=== PATIENT | female | born 1985 | race Caucasian/White ===

== ENCOUNTER 2023-04-25 11:06 | Outpatient (CLI) | payer BC, SELFPAY ==
--- NOTE | 2023-04-25 11:15 | CRLHL7_ITS ---
For Patients: As a result of the 21st Century Cures Act, medical imaging exams and procedure reports are released immediately into your electronic medical record. You may view this report before your referring provider. If you have questions, please contact your health care provider. ULTRASOUND-GUIDED BREAST BIOPSY AND CLIP PLACEMENT CLINICAL HISTORY: LEFT breast cancer 2019 with LEFT mastectomy. New hypoechoic nodule LEFT chest wall soft tissues. COMPARISON STUDIES: 11/23/2018. TECHNIQUE: Real-time ultrasound with image documentation was used for targeting the breast lesion. Core biopsy specimens were obtained using an automated gun with a 18-gauge biopsy needle. CONSENT and TIME OUT: The procedure, risks, and alternatives were explained to the patient and a consent was signed. [place] Protocol was followed including pre-procedure verification that relevant information/documentation was available, reviewed and properly matched to the patient; consent accurate and complete; and equipment and supplies available. Time Out was conducted just prior to starting procedure to verify the four required elements: patient identity, correct side/site marked (if applicable), procedure, relevant images/results properly labeled and displayed (if applicable). PROCEDURE: The patient was positioned supine on the ultrasound table. The breast was prepped with ChloraPrep. 6 cc of 1 percent lidocaine used for local anesthesia. A sterile metal biopsy clip was placed percutaneously to mona the lesion position within the breast. The specimens were placed in 10% formalin and sent to the pathology department. Pressure was held on the biopsy site until all bleeding subsided. The skin incision was closed with Steri-Strips. An ice pack was positioned over the biopsy site. Post-biopsy instructions were reviewed with the patient, and a written copy was given to her. LATERALITY: LEFT breast/chest wall. LESION: Circumscribed hypoechoic nodule measuring 3 x 3 x 4 millimeters at 2 o`clock 6 cm from the nipple. SUSPICION FOR MALIGNANCY: Intermediate. NUMBER OF SAMPLES: 6. BIOPSY CLIP SHAPE: Oval. PROXIMITY OF CLIP TO TARGET: Within the lesion. IMPRESSION: Ultrasound-guided breast biopsy. When the pathology report is available, an addendum to this report will be made. ACR not applicable Dictated by Walker Garcia MD @ 04/25/2023 12:16:06 PM marjan/Dictated by: Walker Garcia MD @ 04/25/2023 12:16:00 PM ADDENDUM: Pathology consistent with benign lymph node. No evidence of metastatic disease. This is concordant. Routine clinical follow-up recommended. Dictated by: Walker Garcia MD @04/27/2023 11:57:33 AM / CRL:marjan (Electronically Signed)
== END 2023-04-25 11:07 | disposition home or self-care (01) ==
LOC: US 11:09
PROVIDERS: PCP Family Medicine; Visit Provider Family Medicine
DX: R22.2 Localized swelling, mass and lump, trunk (principal); Z85.3 Personal history of malignant neoplasm of breast
CPT/HCPCS: 19083; 88305; A4648; A4649

== ENCOUNTER 2024-12-26 05:56 | Day surgery (SDC) | payer BC, SELFPAY ==
[2024-12-26] VITALS (14 sets, daily range): BP systolic 120–148; BP diastolic 72–94; PULSE 82–110; RESP 12–16; TEMP 36.2–36.7; O2SAT 93–98; BMI 36.6; BMI 30.7
--- OUTSIDE RECORDS SUMMARY | 2024-12-26 05:59 | XMS_ITS ---
Author Organization [facility] Address [address] [place] [address] Care Team Providers Care Fruit Worker Name Role Phone None Reported, Pcp Primary Care Provider Unavail able Active Problems * This document contains information received from the source organization and may not represent a complete record from that organization. Problem Noted Date Diagnosed Date Panic Disorder Episodic Paroxysmal Anxiety 11/16 BRCA1 Gene Mutation Positive 11/14/2023 Absence Of Breast Acquired Bilateral 05/31/2019 Menopause Surgical 05/31/2019 Osteopenia 05/31/2019 Genetic Susceptibility To Malignant Neoplasm Ova ry 01/07/2019 Malignant Neoplasm Of Overla pping Sites Of Left Female Breast 09/14/2018 Cancer Staging:Clinical stage from 08/02/2018:Stage IIB(cT2, cN0, cM0, G3, ER-, WV-, HER2-) - Signed by Vick Rose M.D. on 12/10/2021 Pathologic stage from 02/20/2019:No Stage Recommended(ypT0, pN0(sn), cM0) - Signed by Vick Rose M.D. on 12/10/2021 Genetic Susceptibility To Breast Malignant Neopl asm 09/12/2018 Overview (05/31/2019): BRCA1 gene mutation Obesity Body Mass Index 30-39.9 Adult Overview (05/31/2019): 05/31/19 BMI 31.6 Current Treatment and Therapy Plans No current plan information found. Past Treatment and Therapy Plans Hematology / Oncology Treatment 1 Plan Name Start Date Discontinue Date Treatment Medications Discontinue Reason Plan Provider Cycles [facility] [id number] ( Cyclophosphamide / Sargramostim / Folate Receptor Alpha Peptide or Placebo ) 201808/14/2024 [facility] IRB [id number] cycloPHOSphamideResear IRB [id number] FR-alpha peptide 2.5 mg/sargramostim or placebo/sargramostim Therapy Complete Vick Rose M.D. 14 of 14 cycles started Treatment Summaries Malignant Neoplasm Of Overlapping Sites Of Left Female Breast (HCC)* Images from the original note were not included. Your Survivorship Care Plan Provided on 05/31/2019 General Information Patient name Ariana Trotter (home) [phone] (work) Date of 1985 Introduction This is your personal survivorship care plan. It is both a summary of your treatment history as well as a follow-up plan to guide you through the management of your continued medical care. The plan was developed by a multidisciplinary team of [place] cancer providers to help you understand, discuss, and plan post-treatment needs with your healthcare providers, including your primary care team. It includes detailed medical information regarding your treatment as well as information relating to potential shorter and long-term side-effects post-treatment. What is Survivorship? The most widely used definition of survivorship care involves the following elements: 1. Prevention of recurrent and new cancers, and of other late effects; 2. Surveillance for cancer spread, recurrence, or second cancers; assessment of medical and psychosocial late effects; 3. Intervention for consequences of cancer and its treatment, for example: medical problems such aslymphedema and sexual dysfunction; symptoms, including pain and fatigue; psychological distress experienced by cancer survivors and their caregivers; and concerns related to employment, insurance, and disability; and 4. Coordination between specialists and primary care providers to ensure that all of the survivors health needs are met. Care Team Patient Care Team: Vick Rose M.D. as Oncologist Breast (Medical Oncology) Josette Robertson M.D. as External Oncologist (Medical Oncology) Catherine Villanueva M.D. as Breast Surgeon Scarlett Freedman M.D. as Plastic Surgeon Cancer Diagnosis and Staging Information Diagnosis Malignant Neoplasm Of Overlapping Sites Of Left Female Breast (HCC) Invasive ductal carcinoma Diagnosis date 09/14/2018 Staging information Cancer StagingPathologic Staging (AJCC, 8th edition) TNM Descriptors: y Primary Tumor: pT0 Modifier: (sn) Category: pN0 Distant Metastasis: Not applicable. Genetic Testing Performed Genetic Consultation to be performed 06/21/2019. Genetic Test Results: POSITIVE. BRCA1 pathogenic variant identified. BRCA1 c.1687C>T. NF1 variant of uncertain significance. NF1 c.6943G>A. Background Information Family history Cancer-related family history includes Testicular cancer (age of onset: 25) in her brother. Social History Alcohol use reports current alcohol use of about 1.0 standard drinks of alcohol per week. Tobacco use reports that she has never smoked. She has never used smokeless tobacco. Treatment Summary Breast Cancer Oncology History Malignant Neoplasm Of Overlapping Sites Of Left Female Breast (HCC) 07/24/2018 Initial Diagnosis Malignant Neoplasm Of Left Female Breast In June 2018 patient noticed lump in left breast while her infant. It was observedfor 1 month, but then ultrasound pursued. 2.2x1.5x1.8 cm mass on ultrasound. MRI breast showed 2.8x1.9x2.2 cm mass. No contralateral findings. 07/24/2018 Biopsy/Pathology Core needle biopsy: Left breast invasive ductal carcinoma, Grade III, ER/WV <1%, HER2 negative (IHC 1+). 07/27/2018 - 11/26/2018 Chemotherapy Weekly paclitaxel initiated. Carboplatin added on 09/11/18 when mass showed no change and BRCA1 foundto be positive. 09/12/2018 Genetic Testing and Tumor Genotyping Genetic Testing Performed: 23-gene Breast/Ball Warper Tender Cancer Panel ([employer]). Genetic Test Results: POSITIVE. BRCA1 pathogenic variant identified. BRCA1 c.1687C>T. NF1 variant of uncertain significance. NF1 c.6943G>A. 11/26/2018 - 01/10/2019 Chemotherapy Doxorubicin and cyclophosphamide x 4 cycles. 01/16/[address] performed due to patient having low back pain. No evidence of malignancy. 02/20/2019 Surgery and Procedures Procedure(s) with Dr. Davis: MASTECTOMY, SKIN-SPARING. (Bilateral) BIOPSY SENTINEL LYMPH NODE AXILLARY (Left) REMOVAL CENTRAL VENOUS CATHETER, PORT. (Right) RECONSTRUCTION BREAST WITH TISSUE MICROWAVE RADIO TECHNICIAN (Bilateral) LAPAROSCOPIC SALPINGO-OOPHORECTOMY (Bilateral) 02/20/2019 Biopsy/Pathology Breast, left, skin-sparing mastectomy: No residual invasive or in situ carcinoma. [place] lymph nodes negative. 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 We shared the data from Tang et al in 2017 noting excellent roasterman outcomes. Our standard of care we discussed is to proceed to observation with clinic visits every 3-4 months initially, and then spacing out further. She has no need for radiation. She is uncertain about her reconstruction plan for this time. We discussed our anti-folate receptor vaccine study designed specifically in triple negative breastcancer that will target folate receptor alpha (Fr?). We shared the details of this study and she isquite interested in participating. We contacted our document control coordinator, Ángel Nicholson, and provided a blank consent form. We will see her back in 3 months time with anticipation of consent the study. She will be followed by both Dr. Acuna and myself. [id number] - Double Blind, Parallel Groups, Controlled, Randomized Phase II Trial to Evaluate Vaccination with Folate Receptor Alpha Peptide Vaccine with GM-CSF as Vaccine Adjuvant Following Oral Cyclophosphamide Versus GM-CSF/Placebo to Prevent Recurrence in Patients with Triple Negative Breast Cancer 05/31/2019 Survivorship Clinic Consultation with Daniella Sparks APRN, C.N.P., D.N.P. Lifetime Cumulative Dose Lifetime Dose Tracking No doses have been documented on this patient for the following tracked chemicals: doxorubicin, epirubicin, idarubicin, daunorubicin, mitoxantrone, bleomycin, doxorubicin HCl pegylated liposomal, daunorubicin citrate liposomal, Pediatric total anthracycline, Adult total anthracycline Schedule of Surveillance Testing and Visits The basis for the surveillance testing schedule and test recommendations in this section are largely based on guidelines from the [place] [employer] (ASCO), the biggest cancer society regarding clinical practice. -Physical examinations should be performed every 3 to 6 months for the first 3 years, every 6 to 12months for years 4 and 5, and annually thereafter. -Monthly breast and/or chest wall self examinations. -Women who had bilateral (both sides) mastectomy with or without reconstruction do not need furtherbreast imaging studies for screening or surveillance. Surveillance visits How often: As directed by oncology With Who: Medical Oncology Additional information: Imaging (mammograms) How often: No longer needed Where: Additional information: Follow-up care with your Primary Care Physician (PCP) Follow-up care with your primary care physician is recommended for age- appropriate cancer screenings, for monitoring blood pressure, cholesterol, blood sugar, weight, and for other medical conditions. Symptoms of Recurrence In addition, please contact your healthcare provider with any new symptoms that may signify a breast cancer recurrence including lumps or skin changes on your breast or chest wall, pain that lasts more than a few weeks, difficulty breathing, or unintentional weight loss. Long- term Side effects Possible late and long-term effects of cancer treatment can include bone thinning, menopausal symptoms, and nerve damage. Please talk to your care team about ways to manage these side effects. Menopause Symptoms After chemotherapy, some women stop getting their periods every month-- or stop getting them altogether. Some cancer treatments (and the medicines tamoxifen and raloxifene) can cause changes in women???s bodies and reduce the amount of hormones they make. These changes can cause your periods to stop, as well as cause other symptoms of menopause (also called ???the change?? or ???change of life?? ). Over time, some women will start getting their periods again (this is more likely foryounger women), but others will not. Even though your doctor may have discussed early menopause with you, give yourself permission to mourn the loss of your fertility. Some common signs of menopause are: Irregular periods. One of the first signs is a change in your periods. They may become less regular. They could be multiple wire sawyer. Some women have short times of heavy bleeding. Sometimes, they stop all of a sudden. Hot flashes. Hot flashes are often worse at night and can affect sleep or cause mood changes. Problems with your vagina or bladder. Tissues in these areas become soap drier operator and thinner. You may be more likely to get vaginal infections. As you get older, you may also have problems holding your urine or urinary tract problems. Lack of interest in having sex. These changes may make it hard for you to become sexually aroused. Fatigue and sleep problems. You may feel tired or have trouble getting to sleep, getting up early, or getting back to sleep after waking up in the middle of the night. Memory and other problems, such as depression, mood swings, and irritability. Some of these, especially memory problems, may be related to growing older. There may be a connection between changes in your hormone levels and your emotions. Other changes in your body. You may notice your waist getting bigger, less muscle and more fat around your body, or thinning and loss of elasticity of your skin. Ask your doctor if you still need to use control, even if you are not getting your period. Wellness Recommendations: Healthy food choices include a wide variety of fruits, vegetables, whole grains, poultry, and fish while minimizing refined grains, processed and red meats, desserts, and high?fat dairy products. Exercise after cancer treatment improves quality of life, fatigue, mood, muscle strength, and physical functioning. It also decreases the risk of cancer recurrence and the risk of cardiovascular disease. Work up to exercising 30 minutes/day at least 5 days/week, and strive to achieve a healthy weight (BMI 18.5?25). Alcohol use is linked to the risk of breast cancer recurrence. If you choose to drink alcohol, do so in moderation (no more than 7 drinks/week on average). Tobacco use may also increase risk of breast cancer recurrence. If you smoke, talk to your doctor to help you quit. [facility] can help. Stress management tools such as meditation, prayer, and breathing exercises may be helpful. If you develop feelings of worry, anxiety, sadness, or hopelessness that persist for > 2 weeks, talk to a health care provider. Sleep is important for healing and well-being. Most adults require 7?9 hours of sleep/night. If youare having difficulty sleeping, talk to your provider.
--- OUTSIDE RECORDS SUMMARY | 2024-12-26 05:59 | XMS_ITS | Clinical Summary ---
Author Organization [facility] Address [address] [place] [address] Care Team Providers Care Subscription Crew Leader Name Role Phone None Reported, Pcp Primary Care Provider Unavail able Source Comments Patient records contain information from all sites at [facility]. For routine questions regarding patient records, call [phone] during business hours, M-F 8:00 AM - 5:00 PM Central Time. Record requests for emergency care only can be directed to [phone] at any time.[facility] Allergies Active Allergy Reactions Criticality Noted Date Comments Adhesive Tape-Silicones Rash 06/28/2019 Rash from Tegaderm Medications * This document contains information received from the source organization and may not represent a complete record from that organization. multivitamin tablet Take 1 tablet by mouth daily. 5 Active ascorbic acid, vitamin C, (VITAMIN C) 1,000 mg tablet Take 1,000 mg by mouth daily. Active calcium carb/magnesium oxid/D3 (CALCIUM MAGNESIUM + D ORAL) Take 1 tablet by mouth daily. Active cholecalciferol (VITAMIN D3) 125 mcg (5,000 Unit) capsule Take 125 mcg by mouth once a week. Active gabapentin (NEURONTIN) 300 mg capsule Take 300 mg by mouth at bedtime. 3 Active FLUoxetine (PROzac) 20 mg capsule Take 20 mg by mouth daily. To be taken with 40 mg capsule to total 60 mg 4 Active FLUoxetine (PROzac) 40 mg capsule Take 1 capsule by mouth every morning. 4 Active levonorgestreL (Mirena) 21 mcg/24 hr (8 yrs) 52 mg IUD 1 each by intrauterine route continuously. To be removed 12/25/2031 Active LORazepam (Ativan) 0.5 mg tablet Take 0.5 mg by mouth every 6 (six) hours as needed. 4 Active amoxicillin (AmoxiL) 500 mg tabletIndicatio ns:Malignant Neoplasm Of Overlapping Sites Of Left Female Breast (HCC) Take four tablets, by mouth, 1 hour before the procedure 8 tablet 1 5 Active ibuprofen 200 mg tablet Take 3 tablets (600 mg total) by mouth every 8 (eight) hours as needed for pain. HOLD for 48 hours after surgery. May resume taking on 07/28/24 5 Active acetaminophen (TylenoL) 500 mg tablet Take 2 tablets (1,000 mg total) by mouth every 6 (six) hours as needed for pain (pain) for up to 14 days. Take 2 tablets up to four times daily for pain 5 Active ondansetron (Zofran) 4 mg tablet Take 1 tablet (4 mg total) by mouth every 8 (eight) hours as needed for nausea or vomiting. 20 tablet 09/26/2024 3:50 PM CDT 5 Active traMADoL (Ultram) 50 mg tabletIndicatio ns:Acute Pain Take 1 tablet (50 mg total) by mouth every 6 (six) hours as needed for pain 8 tablet 07/25/2024 2:36 PM QUALITATIVE EXECUTIVE RESEARCHER 5 Active norethindrone (Aygestin) 5 mg tablet Take 0.5 tablets (2.5 mg total) by mouth daily. 45 tablet 3 10/04/2024 11:46 AM CDT 5 09/07/19 26 Active estradioL (Vivelle-Dot) 0.1 mg/24 hr patchIndication s:Menopause Surgical Place 1 patch on the skin every 3 (three) days. 24 patch 1 12/02/2024 3:55 PM CDT 5 Active estradioL (Vivelle-Dot) 0.05 mg/24 hr patchIndication s:Menopause Surgical Place 1 patch on the skin every 3 (three) days. 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 on 12/10/2021 Pathologic stage from 02/20/2019:No Stage Recommended(ypT0, pN0(sn), cM0) - Signed by Vick Rose M.D. on 12/10/2021 Genetic Susceptibility To Breast Malignant Neopl asm 09/12/2018 Overview (05/31/2019): BRCA1 gene mutation Obesity Body Mass Index 30-39.9 Adult Overview (05/31/2019): 05/31/19 BMI 31.6 Encounters Date Type Department Care Team Description 11/29/2024 Refill Department of Orthopedic Surgery in [place], [place] [address] [place] [phone] Noah Olivas M.D. Med Refill 10/25/2024 Clinical Communication Division of Plastic Surgery in [place], [place] [address] [place] [phone] Nancy Sexton M.D. Surgical Listing 10/01/2024 2:00 PM CDT Office Visit Division of Plastic Surgery in [place], [place] [address] [place] [phone] Emelina Sampson APRN, C.N.P., D.N.P. Aftercare Plastic Surgery (Primary Dx) 10/01/2024 Ancillary Procedure Department of Plastic and Reconstructive Surgery from Last 3 Months Immunizations Immunization Administration Dates Next Due 4vHPV (discontinued) 09/28/2006,05/29/2006,03/30 H1N1 All Forms 04/17/2009 HepA / HepB 05/11/2023(Deferred: Other) Influenza TIV (IM) 03/13/2013,03/15/2012, 009 Influenza, Seasonal, Injectable 03/13/2013,03/15 Influenza, Unspecified 05/11/2023(Deferr ed: Patient Refused),03/13/2019 MMR 10/01/1996 PCV20 11/17/2023 Rabies (Rabavert) 03/03/2018,02/28/2018 Rabies, intramuscular, historical 04/10/2015,02/2015,03/13/2015 SARS-COV-2 (COVID-19) - PFIZ ER TS(Discontinued)(12 years or older) 05/11/2023(Deferred: Other - up to date) Td (Adult), adsorbed 10/01/1996 Tdap 03/09/2017,09/28/2006 influenza trivalent vaccine (6 months and older)(PF) 03/13/2009 influenza vaccine quad (FLUZONE/FLUARIX) (6 months and older)(PF) 06/17/2021,02/26/2020,03/13/2019,2017,02/23/2017,04/05/2016,03/05/2015,0 07/03/2014 Family History Medical History Relation Name Comments Testicular cancer Brother 1 No Known Problems Brother 2 Other cancer Brother 3 Luke Schwalbe Testicular Other cancer Brother 4 Luke Schwalbe Testicular No Known Problems Daughter 1 No Known Problems Daughter 2 No Known Problems Father Parkinsonism Maternal Grandfather 1 Jesús Horoshak Parkinsonism Maternal Grandfather 2 Jesús Horoshak Thyroid disease Maternal Grandmother 1 Nicole Horoshak hypo Thyroid disease Maternal Grandmother 2 Nicole Horoshak hypo BRCA1 Negative Mother Cathi Horoshak Breast cancer Mother Cathi Horoshak 2021 Hyperthyroidism Mother Cathi Horoshak Thyroid disease Mother Cathi Horoshak Graves Colon cancer Paternal Grandfather Ilir Schwalbe Coronary artery disease Paternal Grandfather Ilir Schw albe Eye cancer Paternal Grandfather Ilir Schwalbe Other cancer Paternal Grandfather Ilir Joya Eye ca ncer Skin cancer Paternal Grandfather Ilir Ashfordalmaryjo BRCA1 Positive Sister Thyroid cancer Sister No Known Problems Son Relation Name Status Comments Brother 1 Brother 2 Brother 3 Bj Joya Brother 4 Bj Joya Alive Daughter 1 Daughter 2 Father Maternal Grandfather 1 Jesús Horoshak Maternal Grandfather 2 Jesús Horoshak Alive Maternal Grandmother 1 Nicole Horoshak Maternal Grandmother 2 Nicole Horoshak Alive Mother Cathi Randleak Paternal Grandfather Ilir Ashfordalmaryjo Sister Son Social History Tobacco Use Types Packs/Day Years Used Date Smoking Tobacco: Never Passive Smoke Exposure: Past Smokeless Tobacco: Never Tobacco Cessation:Counseling Given: Not Answered Alcohol Use Standard Drinks/Week Comments Yes 2 (1 standard drink = 0.6 oz pur e alcohol) 1 or less weekly [facility] Utilities Answer Date Recorded In the past 12 months has e [employer], gas, oil, or water [employer] threatened to shut off services in your home? No 07/16/2024 Humiliation, Afraid, Rape, and Kick questionnair e Answer Date Recorded Within the last year, have y ou been afraid of your partner or ex-partner? No 04/08/2022 Within the last year, have y ou been humiliated or emotionally abused in other ways by your partner or ex-partner? No Within the last year, have y ou been kicked, hit, slapped, or otherwise physically hurt by your partner or ex-partner? No 04/08/2022 Within the last year, have y ou been raped or forced to have any kind of sexual activity by your partner or ex-partner? No 04/08/2022 Hunger Vital Sign Answer Date Recorded Within the past 12 months, y ou worried that your food would run out before you got the money to buy more. Never true 07/16/19 25 Within the past 12 months, t he food you bought just didn't last and you didn't have money to get more. Never true 07/16/2024 PRAPARE - Transportation Answer Date Re corded In the past 12 months, has l ack of transportation kept you from medical appointments or from getting medications? No 09/2024 In the past 12 months, has l ack of transportation kept you from meetings, work, or from getting things needed for daily living? No 07/16/2024 Depression Answer Date Recor ded PHQ-9 Total Score (max 27) 10 11/16 Housing Stability Answer Date Recorded What is your living situation today? I have a [facility] place to live 07/16/2024 Education Answer Date Recorded What is the highest level of school you have completed or the highest degree you have received? 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 Not on file Not on file Not on file Last Filed Vital Signs Vital Sign Reading Time Taken Comments Blood Pressure 153/95 07/25/2024 2:15 PM QUALITATIVE EXECUTIVE RESEARCHER Pulse 107 07/25/2024 2:15 PM QUALITATIVE EXECUTIVE RESEARCHER Temperature 37.1 C (98.8 F) 07/25/2024 1:15 PM QUALITATIVE EXECUTIVE RESEARCHER Respiratory Rate 21 07/25/2024 1:30 PM QUALITATIVE EXECUTIVE RESEARCHER Oxygen Saturation 94% 07/25/2024 2:15 PM QUALITATIVE EXECUTIVE RESEARCHER Inhaled Oxygen Concentration - - Weight 88.9 kg (195 lb 15.8 oz) 07/25/2024 9:50 AM QUALITATIVE EXECUTIVE RESEARCHER Height 157 cm (5' 1.81) 07/25/2024 9:50 AM QUALITATIVE EXECUTIVE RESEARCHER Body Mass Index 36.07 07/25/2024 9:50 AM QUALITATIVE EXECUTIVE RESEARCHER Plan of Treatment Upcoming Encounters Date Type Department Care Team (Latest Contact Info) Description 01/16/2025 12:00 PM CDT Appointment Department of Laboratory Medicine and Pathology, [facility], in [place], [place] [address] [place] [phone] Nancy Sexton M.D. [address] [place] [phone] 01/16/2025 12:20 PM CDT Ancillary Procedure Department of Cardiovascular Medicine in [place], [place] [address] [place] [phone] Nancy Sexton M.D. [address] [place] [phone] 01/16/2025 1:00 PM CDT Office Visit Division of Plastic Surgery in [place], [place] [address] [place] [phone] Nancy Sexton M.D. [address] [place] [phone] 01/16/2025 1:45 PM CDT Comprehensive Visit Preoperative Evaluation Center in [place], [place] [address] [place] [phone] Nancy Sexton M.D. [address] [place] [phone] 01/27/2025 8:10 AM CDT Hospital Encounter RST RO 01 4 AM ADMIT [address] [place] [phone] Nancy Sexton M.D. [address] [place] [phone] 01/27/2025 8:10 AM CDT - 01/27/2025 5:14 PM CDT Surgery RST RO MAIN OR [address] [place] [phone] Nancy Sexton M.D. [address] [place] [phone] RECONSTRUCTION BREAST WITH DEEP INFERIOR EPIGASTRIC SENIOR LOGISTICS MANAGER FLAP 02/06/2025 10:45 AM CDT Office Visit Division of Plastic Surgery in [place], [place] [address] [place] [phone] Emelina Sampson, DANIEL, C.N.P., D.N.P. [address] [place] [phone] Scheduled Procedures Name Priority Associated Diagnoses Date/Ti me RECONSTRUCTION BREAST WITH DEEP INFERIOR EPIGASTRIC SENIOR LOGISTICS MANAGER FLAP Absence Of Breast Acquired Bilateral BRCA1 Gene Mutation Positive Genetic Susceptibility To Breast Malignant Neoplasm 01/27/2025 8:10 AM CDT CAPSULOTOMY BREAST Absence Of Breast Acquired Bilateral BRCA1 Gene Mutation Positive Genetic Susceptibility To Breast Malignant Neoplasm 01/27/2025 8:10 AM CDT REMOVAL TISSUE FACSIMILE OPERATOR BREAST Absence Of Breast Acquired Bilateral BRCA1 Gene Mutation Positive Genetic Susceptibility To Breast Malignant Neoplasm 01/27/2025 8:10 AM CDT Health Maintenance Due Date Last Done Comments HIV Screening 1984 Hepatitis C Screening 1984 Hepatitis B Vaccines (1 of 3 - 19+ 3-dose series) 2003 Cervical/Vaginal Cancer Screening 06/12/2022 06/12/2019 (Performed elsewhere) COVID-19 Vaccine ( season) 2024 07/22/2021, 10/01/2020, 09/10/2020 Depression Screening (Annual PHQ-2) 06/12/2024 Lipid (Cholesterol) Screening 02/25/2025 02/26/2020 Influenza Vaccine (#1) 2025 2, 02/26/2020, 03/13/2019, Additional history exists DTaP,Tdap,and Td Vaccines (4 - Td or Tdap) 03/09/2027 03/09/2017, 09/28/2006, 10/01/1996 HPV Vaccines Completed 09/28/2006, 05/12, 03/30/2006 Pneumococcal vaccine (0-49 years) Aged Out 11/17/2023 No longer eligible based on patient's age to complete this topic IPV Vaccines Aged Out No longer eligi ble based on patient's age to complete this topic Goals Goal Patient Goal Type Associated Problems Recent Progress Patient-Stated? Author Autogenera sharad Goal Care Plan Autogenerated Problem No Monique Reece I., R.[employer] Implanted Type Area Cloth Bleaching Range Operator Chief Device Identifier Shelf Expiration Date Model / Serial / Lot Clp Hrzn Ti 6 Angela Campbell Shane - [id number] Implanted:Qty: 1 on 02/20/2019 by Catherine Villanueva M.D. at [facility] Hardware e.g. pins/screws/ro ds [employer] [id number] 09/11/2023 [id number] / / [id number] Mirena 21 Mcg/24 Hours (8 Yrs) 52 Mg Intrauterine Device-12/25/19 Implanted:Qty: 1 on 12/25/2023 by Noah David M.D. Intrauterine Device Uterus Lexie [id number] Description:To be removed Misc Other Misc Other Pelvis Description:Pt states noted on PET scan Exp Brst Nacl Jean-Claude Campbell [facility] [id number] - [id number] Implanted:Qty: 1 on 07/25/2024 by Nancy Llanes M.D. at [facility] Tissue Coding Assistant Left: Breast [employer] 08/16/2027 SCPX-13 5 / [id number] / [id number] Exp Brst Nacl Jean-Claude Campbell [facility] [id number] - [id number] Implanted:Qty: 1 on 07/25/2024 by Nancy Llanes M.D. at [facility] Tissue Coding Assistant Right: Breast [employer] 03/25/2026 SCPX-13 5 / [id number] / [id number] Explanted Type Area Cloth Bleaching Range Operator Chief Device Identifier Shelf Expiration Date Model / Serial / Lot Exp Brst Ntr Yumiko Mxt Rnd 600 - [id number] - [id number] Implanted:Qty: 1 on 02/20/2019 by Scarlett Freedman M.D. at [facility] Explanted:Qty: 1 on 07/25/2019 by Scarlett Freedman M.D. at [facility] Breast Implant [employer] 07/26/2023 133S-MX- 14-T / [id number] / Exp Brst Ntr Yumiko Mxt Rnd 600 - [id number] - [id number] Implanted:Qty: 1 on 02/20/2019 by Scarlett Freedman M.D. at [facility] Explanted:Qty: 1 on 07/25/2019 by Scarlett Freedman M.D. at [facility] Breast Implant [employer] 11/01/2023 133S-MX- 14-T / [id number] / Breast Other Breast Other Left: Breast Description:Breast clip left breast Clp Hrzn Ti 24 Clp Shane - [id number] Implanted:Qty: 1 on 02/20/2019 by Catherine Villanueva M.D. at [facility] Hardware e.g. pins/screws/ro ds [employer] [id number] / / Implantable Port Implantable Port Chest Procedures Procedure Name Priority Date/Time Associated Diagnosis Comments TISSUE EXPANSION Routine 10/01/2024 2:00 PM CDT Aftercare Plastic Surgery PLASTIC AND RECON SURGERY IMAGE EXAM Routine 10/01/2024 12:00 AM CDT from Last 3 Months Results * MD NO CHARGE VISIT (10/01/2024 2:00 PM CDT) Narrative MMODAL - 10/01/2024 2:00 PM CDT Emelina Sampson APRN, C.N.P., D.N.P. 10/01/2024 3:27 PM Tissue Expansion Performed by: Emelina Sampson APRN, C.N.P., D.N.P. Authorized by: Emelina Sampson APRN, C.N.P., D.N.P. CONSENT Consent obtained: verbal Consent given by: patient The benefits, risks and alternatives to the procedure and the potential need for sedation or anesthesia as well as the names, roles, and responsibilities of healthcare team members performing significant interventional tasks were discussed with the patient and/or decision maker. UNIVERSAL PROTOCOL All relevant documentation and testing were reviewed and available. All required blood products, implants, devices and or special equipment were made available as applicable. Pre-procedure verification was conducted and the correct site was marked if required. A fire risk and smoke assessment were done as applicable. The procedural time-out to verify correct patient, correct side/site, and procedure was conducted prior to performing the procedure and confirmed in a procedural pause. PRE-PROCEDURE DETAILS Appropriate hand hygiene, gown, cap, mask, protective eyewear, sterile gloves, skin preparation, sterile drape, and strict aseptic technique were utilized as applicable for the procedure.: yes Skin preparation: povidone-iodine SEDATION / ANESTHESIA Anesthesia method: none POST-PROCEDURE DETAILS Post-procedure capillary refill < 3 seconds: yes Procedure completed successfully: yes Complications: no apparent complications COMMENTS Implant type: Sunflower 550 Current cc: Right breast: 420 cc CC instilled today (sterile saline): Right breast: 50 cc. Total cc: Right breast: 470 cc. Implant type: Sunflower 550 cc Current cc: Left breast: 400 cc CC instilled today (sterile saline): Left breast: 50 cc. Total cc: Left breast: 450 cc. Comments: Procedure explained, pt wishes to proceed. The patient was made comfortable in the office chair. Port(s) marked, prepped, and draped in the sterile fashion. The patient tolerated the tissue expansion(s) well. She had a good capillary refill. All questions were asked and answered per patient report. All applicable policies/procedures for expansion process were followed. Emelina Sampson APRN, C.N.P., D.N.P. PROCEDURE/M INOR SURGICAL ORDERABLES Final Result Performing Organization Address [facility] de Phone Number MMODAL NA * Breast Breast reconstruction-Plastic And Recon Surgery Image Exam (10/01/2024 12:00 AM CDT) Narrative IIMS - 10/01/2024 2:43 PM CDT This order has been created and auto-finalized to support the import of images acquired without order. The clinical documentation to support these images can be found on the encounter that produced images. Provider Not In System IMG NON RAD IMAGING PROCE DURES Final Result Performing Organization Address [facility] de Phone Number IIMS NA from Last 3 Months Additional Health Concerns Active Problems Noted Date Diagnosed Date Autogenerated Problem 10/25/2024 Insurance [facility] [place]TTE BRUNNER [id number] Advance Directives For more information, please contact: [phone] * Full Code (Latest Code Status on File) Date Activated Date Inactivated Comments 02/20/2019 4:41 PM 02/21/2019 3:39 PM Question Answer Comments Full Code: Not Discussed Due to: Patient not available * Full Code Date Activated Date Inactivated Comments 02/20/2019 6:35 AM 02/20/2019 4:41 PM Question Answer Comments Full Code: Not Discussed Due to: Not medically appropriate Care Teams Subscription Crew Leader Relationship Specialty Start Date End Date None Reported, Pcp PCP - General Family Medicine 12/06/22
--- OUTSIDE RECORDS SUMMARY | 2024-12-26 06:00 | XMS_ITS | Clinical Summary ---
Author Organization [facility] Address [address] [place] [address] Care Team Providers Care Analytics Specialist Name Role Phone Suzy Walker DO Primary Care Provider [phone] Allergies Active Allergy Reactions Criticality Noted Date Comments Adhesive Tape-Silicones Rash 06/28/2019 Rash from Tegaderm Medications cholecalciferol (VITAMIN D3) 5,000 unit capsule Take 125 mcg by mouth. Twice weekly Active levonorgestrel (MIRENA) 20 mcg/24 hours (8 yrs) 52 mg intrauterine device (IUD) Inject 1 Each intrauterine . Active FLUoxetine 40 mg capsuleIndicatio ns:Adjustment disorder with anxious mood Take 1 Capsule (40 mg) by mouth once daily in the morning. 90 Capsule 3 5 Active norethindrone 5 mg tablet Take 2.5 mg by mouth once daily. 5 09/07/19 26 Active LORazepam 0.5 mg tabIndications:A djustment disorder with anxious mood Take 1 Tablet (0.5 mg) by mouth every 6 hours if needed for Anxiety or Sleep. 30 Tablet 5 Active estradiol 0.1 mg/24 hr SEMIWEEKLY patchIndications :Surgical menopause on hormone replacement therapy Apply 1 Patch on dry, clean, hairless skin every 72 hours. 32 Patch 3 5 Active SEMIWEEKLY patch estradiol 0.05 mg/24 hr SEMIWEEKLY transdermal patchIndications :Surgical menopause on hormone replacement therapy Apply 1 Patch on dry, clean, hairless skin every 72 hours. 32 Patch 3 5 Active gabapentin 300 mg capsuleIndicatio ns:Anxious mood Take 2 Capsules (600 mg) by mouth at bedtime. 180 Capsule 3 5 Active estradiol 0.1 mg/24 hr SEMIWEEKLY patchIndications :Surgical menopause on hormone replacement therapy Apply 1 Patch on dry, clean, hairless skin every 72 hours. 4 12/12/19 25 Discontinu ed(Reorder (E-cancel not sent)) SEMIWEEKLY patch estradiol 0.05 mg/24 hr SEMIWEEKLY transdermal patchIndications :Surgical menopause on hormone replacement therapy Apply 1 Patch on dry, clean, hairless skin every 72 hours. 4 12/12/19 25 Discontinu ed(Reorder (E-cancel not sent)) LORazepam (ATIVAN) 0.5 mg tabIndications:A djustment disorder with anxious mood Take 1 Tablet (0.5 mg) by mouth every 6 hours if needed for Anxiety or Sleep. 30 Tablet 4 12/12/19 Discontinu ed(Reorder (E-cancel not sent)) gabapentin (NEURONTIN) 300 mg capsuleIndicatio ns:Anxious mood TAKE 1 CAPSULE (300 MG) BY MOUTH AT BEDTIME. TO BE TAKEN WITH 100 MG CAPSULE TO TOTAL 400 MG 90 Capsule 3 5 12/12/19 25 Discontinu ed(*Medica tion adjustment ) gabapentin (NEURONTIN) 100 mg capsuleIndicatio ns:Anxious mood TAKE 1 CAPSULE (100 MG) BY MOUTH AT BEDTIME. TAKE 100 MG NIGHTLY FOR ANXIETY TO BE TAKEN WITH 300 MG CAPSULE TO TOTAL 400 MG 90 Capsule 3 5 12/12/19 25 Discontinu ed(*Medica tion adjustment ) FLUoxetine (PROZAC) 40 mg capsuleIndicatio ns:Adjustment disorder with anxious mood TAKE 1 CAPSULE BY MOUTH EVERY MORNING. 90 Capsule 5 12/11/19 25 Discontinu ed(Reorder (E-cancel not sent)) FLUoxetine 20 mg capsuleIndicatio ns:Depression, major, single episode, moderate (HC) TAKE 1 CAPSULE (20 MG) BY MOUTH EVERY MORNING. TO BE TAKEN WITH 40 MG CAPSULE TO TOTAL 60 MG 90 Capsule 5 12/12/19 25 Discontinu ed(*Med complete/R egimen complete/L evel of care change) Active Problems Problem Noted Date Diagnosed Date Pap smear for cervical cancer screening 11/29/19 Overview (11/29/2023): 11/2023 NIL/ HPV negative Plan: Pap/ HPV due 11/2028 Generalized anxiety disorder with panic attacks 09/04/2023 Surgical menopause on hormone replacement therap y 11/01/2022 BRCA1 positive 09/12/2018 Malignant neoplasm of left b reast in female, estrogen receptor negative 07/30/2018 Hx of iron deficiency anemia 04/12/2012 Resolved Problems Problem Noted Date Diagnosed Date Resolved Date Severe episode of recurrent major depressive disorder, without psychotic features 09/04/202312/2023 Supervision of other normal 11/16/2011 03/05/2015 Overview (06/14/2012): GBS negative Supervision of normal first 11/27/2008 01/17/2011 Encounters Date Type Department Care Team Description 12/23/2024 Telephone [facility] [address] [place] [address] Suzy Walker DO Referral (insurance referrals for plastic surgery) 12/11/2024 12:55 PM CDT Office Visit [facility] [address] [place] [address] Suzy Walker DO Physical (39 year old female); STD (Screening ) 12/11/2024 Travel from Last 3 Months Immunizations Immunization Administration Dates Next Due AMB Influenza, IIV3 (Age >=3 years)(Flu Clinic Only) 03/13/2013 AMB Influenza, IIV4 PF (=>6 mos Flulaval,Fluzone Fluarix)(Flu Clinic Only) 04/18/2018 COVID-19 vaccine (EchoFirst-Bio NTech 30mcg/0.3mL) 12YO+ DEN-SUCROSE PF, MDV 07/22/2021 COVID-19 vaccine (EchoFirst-Bio NTech 30mcg/0.3mL) PF, MDV 10/01/2020,09/10/2020 Human Papilloma Virus Vaccine 09/28/2006, 006,03/30/2006 Influenza A (H1N1), Inactivated 04/17/2009 Influenza, IIV3 (Age >=3 years) 03/15/2012,03/13 Influenza, IIV4 06/17/2021, 0,03/13/2019,2015,03/05/2015,07/03/2014 MMR 10/01/1996 Pneumococcal Conj 20-valent (Prevnar 20) 11/17/2023 Rabavert 03/03/2018,02/28/2018 Rabies Vaccine 04/10/2015,03/20/2015,03/13/2015 Td (Age >=7 Years) 10/01/1996 Tdap 03/09/2017,09/28/2006 Family History Medical History Relation Name Comments Other Brother 1 BRCA mutation p ositive Testicular cancer Brother 2 Good Health Father Other Father BRCA mutation p ositive Good Health Maternal Grandfather Good Health Maternal Grandmother Cancer-breast Mother ER, [place] positiv e, HER2 negative (BRCA negative) Other Mother Allergic reacti on to penicillin Cancer Paternal Grandfather Eye, sk in; BRCA mutation positive Good Health Paternal Grandfather 4V CABG Good Health Paternal Grandmother Other Sister BRCA mutation p ositive Relation Name Status Comments Brother 1 Alive Brother 2 Alive Father Alive Maternal Grandfather Maternal Grandmother Mother Alive Paternal Grandfather Paternal Grandmother Sister Alive Social History Tobacco Use Types Packs/Day Years Used Date Smoking Tobacco: Never Smokeless Tobacco: Never Tobacco Cessation:Counseling Given: Yes Alcohol Use Standard Drinks/Week Comments Yes 1.7 (1 standard drink = 0.6 oz p ure alcohol) rarely PHQ-2 Answer Date Recorded PHQ-2 TOTAL SCORE 0 12/11/2024 Social Connections Answer Date Recorded Do you often feel lonely or isolated from those around you? 0 12/11/2024 Financial Resource Strain Answer Date R ecorded Difficulty of Paying Living Expenses 3 12/11/2024 Difficulty of Paying Living Expenses Not on file 12/11/2024 Food Insecurity Answer Date Recorded Do you worry your food will run out before you are able to buy more? 1 12/11/2024 Transportation Needs Answer Date Record ed Does lack of transportation keep you from medica l appointments? 1 12/11/2024 Does lack of transportation keep you from work, meetings or getting things that you need? 1 12/11/2024 Housing Stability Answer Date Recorded What is your housing situation today? 1 12/11/2024 Utilities Answer Date Recorded Do you have trouble paying f or utilities (for example, heat, electricity, water, phone)? 1 12/11/2024 Comments No Sex and Gender Information Value Date Recorded Sex Assigned at Female 06/17/2021 8:46 AM UX DESIGN LEAD Legal Sex Female 5:26 AM UX DESIGN LEAD Gender Identity Female 06/17/2021 8:46 AM UX DESIGN LEAD Sexual Orientation Straight 06/17/2021 8: 46 AM UX DESIGN LEAD Obstetrics History Para Term AB IAB SAB Ectopic Multiple Livin g Live Births 2 1 1 1 1 Date Outcome GA Total Labor Labor/2nd/3rd Weight Sex Type Anes PTL Sarah A1 A5 Name Clin Comments:System Genera sharad. Please review and update details. 010 Term 40w 0d 22h 00m/ 3.63 kg (8 lb) M Vag None Living [facility] Last Filed Vital Signs Vital Sign Reading Time Taken Comments Blood Pressure 125/89 12/11/2024 1:15 PM CDT Pulse 87 12/11/2024 1:15 PM CDT Temperature 36.9 C (98.4 F) 01/28/2019 9:32 AM CDT Respiratory Rate 18 05/01/2014 9:22 AM UX DESIGN LEAD Oxygen Saturation 98% 12/11/2024 1:15 PM CDT Inhaled Oxygen Concentration - - Weight 94.3 kg (207 lb 14.4 oz) 12/11/2024 1:15 PM CDT Height 155.6 cm (5' 1.26) 12/11/2024 1:15 PM CD T Body Mass Index 38.95 12/11/2024 1:15 PM CDT Plan of Treatment Health Maintenance Due Date Last Done Comments Hepatitis B series for 19+ ( 1 of 3 - 19+ 3-dose series) 2003 COVID-19 vaccine series ( season) 2024 07/22/2021, 10/01/2020, 09/10/2020 Influenza Vaccine (#1) 2025 , 02/26/2020, 03/13/2019, Additional history exists BMI (ht and wt on same day) for age 18+ 12/11/2025 12/11/2024, 01/08/2024, 11/17/2023, Additional history exists Depression screening for age 12+ 12/11/2025 12/11/2024, 11/17/2023, 09/01/2023, Additional history exists Tetanus booster 03/09/2027 03/09/2017, 09/10, 10/01/1996 Pap test for age 21-65 11/16/2028 , 11/17/2023, 07/30/2018, Additional history exists Hepatitis C screening for ag e 18-79 Completed 11/16/2011 Pneumococcal series for age 6-49 Completed 11/17/19 24 HIV for age 15-65 Completed 12/11/2024, , 10/16/2008 Procedures Procedure Name Priority Date/Time Associated Diagnosis Comments ALT (SGPT) Routine 12/11/2024 1:53 PM CDT Elevated ALT measurement LIPID PANEL W REFLEX MEASURED LDL Routine 12/11/2024 1:53 PM CDT Screening cholesterol level HEMOGLOBIN A1C Routine 12/11/2024 1:53 PM CDT Diabetes mellitus screening ANTI HIV 1/2 Routine 12/11/2024 1:53 PM CDT Routine screening for STI (sexually transmitted infection) TREPONEMA PALLIDUM Routine 12/11/2024 1: 51 PM CDT Routine screening for STI (sexually transmitted infection) GC CHLAMYDIA TRACH PROBE Routine 12/11/2024 1:36 PM CDT Routine screening for STI (sexually transmitted infection) CARRIER BLOWER THIN PREP PAP SCREEN IMAGED Routine 11/17/2023 1:38 PM CDT Screening for cervical cancer ANTI HCV Routine 11/16/2011 2:18 PM CDT Supervision of other normal (HC) from Last 3 Months or Most Recently Relevant to Health Maintenance Results * HEMOGLOBIN A1C (12/11/2024 1:53 PM CDT) HEMOGLOBIN A1C 5.4 <5.7 % [facility] Comment: For the purpose of screening for the presence of diabetes: <5.7% Consistent with the absence of diabetes 5.7-6.4% Consistent with increased risk for diabetes (prediabetes) > or =6.5% Consistent with diabetes This assay result is consistent with a decreased risk of diabetes. Currently, no consensus exists regarding use of hemoglobin A1c for diagnosis of diabetes in children. According to [place] Diabetes Association (ADA) guidelines, hemoglobin A1c <7.0% represents optimal control in non- diabetic patients. Different metrics may apply to specific patient populations. Standards of Medical Care in Diabetes(ADA). Blood BLOOD SPECIMEN / Unknown 12/11/2024 1:53 PM CDT 12/11/2024 1:53 PM CDT Suzy Walker DO CHEMISTRY Final Result [facility] [address] [place] [address], [facility] [address] [place] [address] * (ABNORMAL) LIPID PANEL W REFLEX MEASURED LDL (12/11/2024 1:53 PM CDT) Pathologist [facility] CHOLESTEROL, TOTAL 218(H) <200 mg/dL [facility] HDL CHOLESTEROL 48(L) > OR = 50 mg/dL [facility] TRIGLYCERIDES 159(H) <150 mg/dL [facility] LDL-CHOLESTEROL 141(H) mg/dL (calc) [facility] Comment: Reference range: <100 Desirable range <100 mg/dL for primary prevention; <70 mg/dL for patients with CHD or diabetic patients with > or = 2 CHD risk factors. LDL-C is now calculated using the Johanne calculation, which is a validated novel method providing better accuracy than the Friedewald equation in the estimation of LDL-C. Doc TUCKER et al. ALFIE. 2013;310(19): 1732-2124 (http://education.[employer]/faq/AMZ241) CHOL/HDLC RATIO 4.5 <5.0 (calc) [facility] NON HDL CHOLESTEROL 170(H) <130 mg/dL (calc) [facility] Comment: For patients with diabetes plus 1 major ASCVD risk factor, treating to a non-HDL-C goal of <100 mg/dL (LDL-C of <70 mg/dL) is considered a therapeutic option. Blood BLOOD SPECIMEN / Unknown 12/11/2024 1:53 PM CDT 12/11/2024 1:53 PM CDT [employer] DO CHEMISTRY Final Result Performing Organization Address [facility] Co de Phone Number [facility] [address] [place] [address], [place] [phone] [facility] [address] [place] [address] * ANTI HIV 1/2 (12/11/2024 1:53 PM CDT) HIV FINAL INTERPRETATOIN [facility] Comment: HIV Negative HIV-1 antigen and HIV-1/HIV-2 antibodies were not detected. There is no laboratory evidence of HIV infection. HIV AG/AB, 4TH GEN NON-REACT CIPRIANO NON-REACT CIPRIANO [facility] Blood BLOOD SPECIMEN / Unknown 12/11/2024 1:53 PM CDT 12/11/2024 1:53 PM CDT [employer] DO SEND OUTS Final Result Performing Organization Address [facility]/ZIP Co de Phone Number [facility] [address] [place] [address], [place] [phone] [facility] [address] [place] [address] * ALT (SGPT) (12/11/2024 1:53 PM CDT) ALT 17 6 - 29 U/L [facility] Blood BLOOD SPECIMEN / Unknown 12/11/2024 1:53 PM CDT 12/11/2024 1:53 PM CDT Suzy Walker DO CHEMISTRY Final Result [facility] [address] [place] [address], [place] [phone] [facility] [address] [place] [address] * TREPONEMA PALLIDUM (12/11/2024 1:51 PM CDT) TREPONEMA PALLIDUM Non-Reacti ve Non-Reacti ve 12/11/2024 10:40 PM CDT [facility] Blood BLOOD SPECIMEN / Unknown [facility] / Unknown 12/11/2024 1:51 PM CDT 12/11/2024 1:51 PM CDT Suzy Walker DO SEND OUTS Final Result Performing Organization Address City/[facility]/ZIP Co de Phone Number [facility] [address] [place] [phone], * GC & CHLAMYDIA DNA PCR [[id number]] (12/11/2024 1:36 PM CDT) CHLAMYDIA PROBE Negative 1:05 PM CDT [facility] N GONORRHOEAE PROBE Negative 12/12/2024 1:05 PM CDT [facility] Other URINE SPECIMEN / Unknown Non-Blood / Unknown 12/11/2024 1:36 PM CDT 12/11/2024 1:50 PM CDT Suzy Walker DO MICROBIOLOGY Final Result [facility] [address] [place] [address], [place] * CARRIER BLOWER THIN PREP PAP SCREEN IMAGED [[id number]] (11/17/2023 1:38 PM CDT) Case Report Gynecologic Cytology Report Case: [id number] Authorizing Provider: Suzy Walker DO Collected: 11/17/2023 1338 Ordering Location: [facility] Received: 11/17/2023 1414 Clinic First Screen: Flakita Pearce Specimen: CARRIER BLOWER ThinPrep Vial Screening, Cervical 11/29/2023 4:47 PM CDT [facility] Dr. Z [facility] INTERPRETATION/ RESULT NEGATIVE FOR INTRAEPITHELIAL LESION OR MALIGNANCY (NIL) (none) 11/29/2023 4:47 PM CDT [facility] Dr. Z [facility] at 1647 CDT ORGANISM(S) Shift in samson suggestive of bacterial vaginosis 11/29/2023 4:47 PM CDT [facility] SPECIMEN ADEQUACY Satisfactory for evaluation Endocervical component present 11/29/2023 4:47 PM CDT [facility] HPV REQUEST HPV and PAP 11/29/2023 4:47 PM CDT [facility] Date of LMP postmenopausal 4 4:47 PM CDT [facility] Dr[facility] Last Pap Date 07/30/18 11/29/2023 4:47 PM CDT [facility] Dr[facility] Last Pap Result NIL 4 4:47 PM CDT [facility] Dr[facility] Z [facility] Abnormal Pap or [place] Bx in last 5 years No 11/29/2023 4:47 PM CDT [facility] Menstrual Status Postmenopausal 11/29/2023 4:47 PM CDT [facility] Dr[facility] Z [facility] [place] Bx Done Today No 11/29/2023 4:47 PM CDT [facility] Dr[facility] Z [facility] Additional Information None given 11/29/2023 4:47 PM CDT [facility] Dr[facility] Z [facility] Comment: Cytology is screened at [facility] - [address], [place] [address] and [facility] - [address] [place] [address], [place] [address] and [facility] - [address] [place] [address] Interpreted at [facility] - [address], [place] [address] Automated Review Successful 11/29/2023 4:47 PM CDT [facility] Comment:Specimen processed s uccessfully by automated ultrasound technologist sonographer device, ThinPrep Imaging System, [employer] ANCILLARY TESTING CARRIER BLOWER HPV Ordered, Please see separate report 11/29/2023 4:47 PM CDT [facility] Note The pap test is a screening technique, not a diagnostic procedure. It is used primarily to screen for squamous cancers and precursor lesions. Published studies have shown that it is subject to both false negative and false positive results. The pap test should not be used as the sole means to diagnose or exclude pre-malignant and malignant lesions. 11/29/2023 4:47 PM CDT [facility] Other (Cervical) Non-Blood / Unknown 11/17/2023 1:38 PM CDT 11/17/2023 2:14 PM CDT us Suzy Walker DO PATHOLOGY/CYTOLOGY Final Resu lt [facility] [address] [place] [address], [place] * ANTI HCV (11/16/2011 2:18 PM CDT) ANTI HCV Non-reacti ve [facility] Blood specimen (specimen) BLOOD SPECIMEN / Unknown 11/16/2011 2:18 PM CDT 11/16/2011 2:10 PM CDT Maya SUMNER SEND OUTS Final R esult [facility] INTERNAL ZIP [address] [place], [place] [phone] from Last 3 Months or Most Recently Relevant to Health Maintenance Insurance [facility] PHIL [facility] Care Teams Analytics Specialist Relationship Specialty Start Date End Date Suzy [place] [address] PCP - General Family Practice 11/17/22
--- OUTSIDE RECORDS SUMMARY | 2024-12-26 06:00 | XMS_ITS | Encounter Summary ---
Author Organization [facility] Address [address] [place] [address] Care Team Providers Care Ip Litigation Associate Name Role Phone None Reported, Pcp Primary Care Provider Unavail able Reason for Visit * Reason Comments Med Refill Encounter Details Date Type Department Care Team (Late st Contact Info) Description 11/29/2024 Refill Department of Orthopedic Surgery in [place], [place] [address] [place] [phone] Noah Olivas M.D. Med Refill Social History Tobacco Use Types Packs/Day Years Used Date Smoking Tobacco: Never Passive Smoke Exposure: Past Smokeless Tobacco: Never Alcohol Use Standard Drinks/Week Comments Yes 2 (1 standard drink = 0.6 oz pur e alcohol) 1 or less weekly [facility] Utilities Answer Date Recorded In the past 12 months has [employer], gas, oil, or water [employer] threatened to shut off services in your [...] your living situation today? I have a [facility] place to live 07/16/2024 Education Answer Date Recorded What is the highest level of school you have completed or the highest degree you have received? 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 [address] [place] [phone] 01/16/2025 12:20 PM CDT Ancillary Procedure Department of Cardiovascular Medicine in [place], [place] [address] [place] [phone] Nancy Sexton M.D. [address] [place] [phone] 01/16/2025 1:00 PM CDT Office Visit Division of Plastic Surgery in [place], [place] [address] [place] [phone] Nancy Sexton M.D. [address] [place] [phone] 01/16/2025 1:45 PM CDT Comprehensive Visit Preoperative Evaluation Center in [place], [place] [address] [place] [phone] Nancy Sexton M.D. [address] [place] [phone] 01/27/2025 8:10 AM CDT Hospital Encounter RST RO 01 4 AM ADMIT [address] [place] [phone] Nancy Sexton M.D. [address] [place] [phone] 01/27/2025 8:10 AM CDT - 01/27/2025 5:14 PM CDT Surgery RST RO MAIN OR [address] [place] [address] Nancy Sexton M.D. [address] [place] [phone] RECONSTRUCTION BREAST WITH DEEP INFERIOR EPIGASTRIC BARK GRINDER FLAP 02/06/2025 10:45 AM CDT Office Visit Division of Plastic Surgery in [place], [place] [address] [place] [address] Emelina Sampson, DANIEL, C.N.P., D.N.P. [address] [place] [address] Scheduled Procedures Name Priority Associated Diagnoses Date/Ti me RECONSTRUCTION BREAST WITH DEEP INFERIOR EPIGASTRIC BARK GRINDER FLAP Absence Of Breast Acquired Bilateral BRCA1 Gene Mutation Positive Genetic Susceptibility To Breast Malignant Neoplasm 01/27/2025 8:10 AM CDT CAPSULOTOMY BREAST Absence Of Breast Acquired Bilateral BRCA1 Gene Mutation Positive Genetic Susceptibility To Breast Malignant Neoplasm 01/27/2025 8:10 AM CDT REMOVAL TISSUE RODEO PERFORMER BREAST Absence Of Breast Acquired Bilateral BRCA1 Gene Mutation Positive Genetic Susceptibility To Breast Malignant Neoplasm 01/27/2025 8:10 AM CDT documented as of this encounter Goals Goal Patient Goal Type Associated Problems Recent Progress Patient-Stated? Author Autogenera sharad Goal Care Plan Autogenerated Problem No Monique Reece I., R.N. documented as of this encounter Visit Diagnoses Not on filedocumented in this encounter Additional Health Concerns Active Problems Noted Date Diagnosed Date Autogenerated Problem 10/25/2024 Assessment Noted Time PHQ-9 Depression Total Score: 10 11/16/ 024 8:20 AM CDT documented as of this encounter Care Teams Ip Litigation Associate Relationship Specialty Start Date End Date None Reported, Pcp PCP - General Family Medicine 12/06/22 documented as of this encounter
--- OUTSIDE RECORDS SUMMARY | 2024-12-26 06:00 | XMS_ITS | CCD ---
Author Name Interface, [id number] lity Address [address] [place] [address] Oncology Address [facility] [place] [address] Allergies and Adverse Reactions Reason for Visit Medications Problems Social History
[2024-12-26 06:22] LABS: Appearance Urine Slightly Cloudy (Clear)
[2024-12-26 06:24] LABS: Hematocrit* 38.8 % (33.0-51.0); Hemoglobin* 13.1 gm/dL (12.0-16.0); Immature Granulocytes Abs Auto 0.01 K/uL (0.00-0.30); Immature Granulocytes Pct Auto 0.1 %; Mean Corpuscular HGB Conc 34 gm/dL (32-36); Mean Corpuscular Hemoglobin 31 pg (26-34); Mean Corpuscular Volume 92 fL (80-100); RDW Coefficient of Variation % 12.3 % (11.5-15.5); Red Blood Count* 4.20 m/uL (4.00-5.20); White Blood Count* 8.88 K/uL (4.50-11.00)
[2024-12-26 06:29] LABS: Lymphocytes Absolute Auto 1.10 K/uL (0.90-2.90); Slide Review Reflex No
--- NOTE | 2024-12-26 06:35 | CRLHL7_ITS ---
For Patients: As a result of the Century Cures Act, medical imaging exams and procedure reports are released immediately into your electronic medical record. You may view this report before your referring provider. If you have questions, please contact your health care provider. INDICATION: Right upper quadrant abdomen pain. TECHNIQUE: Ultrasound abdomen limited. Sonographic images of the right upper quadrant were obtained using wells-scale and color Doppler images. COMPARISON: None. FINDINGS: Gallbladder: Distended gallbladder with multiple stones. There is a 0.4 centimeter stone in the gallbladder neck. Mild gallbladder wall edema measuring 0.4 centimeters. Sonographic Borden`s sign is negative. Common bile duct: 3 mm. IMPRESSION: Cholelithiasis with mild gallbladder wall edema is concerning for early acute cholecystitis. Sonographic Borden`s sign is negative, but this may be inaccurate if the patient recently received pain medication. Dictated by Sarah Tejeda MD @ 12/26/2024 6:59:34 AM (Electronically Signed)
[2024-12-26] MEDS: OxyCODONE/APAP 5-325 TABLET 1 TAB PO (06:39)
[2024-12-26 06:41] LABS: Albumin* 4.3 g/dL (3.3-5.0); Chloride* 106 mmol/L (96-114); Potassium* 3.7 mmol/L (3.6-5.1); Sodium* 137 mmol/L (135-149)
[2024-12-26 06:44] LABS: Alanine Aminotransferase* 78 U/L (4-35); Alkaline Phosphatase* 50 U/L (40-150); Anion Gap 7 mEq/L (7-15); Aspartate Amino Transferase* 139 U/L (12-35); Bilirubin Total* 0.7 mg/dL (0.1-1.5); Blood Urea Nitrogen* 14 mg/dL (5-24); Carbon Dioxide* 24 mmol/L (20-32); Creatinine* 0.7 mg/dL (0.5-1.5); Est. Creatinine Clearance* 84.49; Estimated Glomerular Filt Rate 112 ml/min; Total Protein* 7.2 g/dL (6.0-8.3)
[2024-12-26 06:45] LABS: Calcium* 9.2 mg/dL (8.4-10.6); Glucose* 121 mg/dL (60-115)
--- OUTSIDE RECORDS SUMMARY | 2024-12-26 07:05 | XMS_ITS | CCD ---
Author Name Interface, [id number] lity Address [address] [place] [address] [facility] Address [address] [place] [address] Allergies and Adverse Reactions Medication/Group Name Reaction Severity Date No known allergies Reason for Visit Medications Date Name Route Dose Frequency Instructions Start Date End Date Status Carboplatin IV I.V. 2.0 TARGET AUC as directed active Paclitaxel IV I.V. 135.0 MG/M2 as directed active Prochlorperazine Oral PO 1.0 TABLET(S) Q6H PRN nausea active Miscellaneous Drug dose: 4.0 mg 01/11 active Sertraline Oral PO 1.0 TABLET(S) daily . active Lorazepam Oral PO 1.0 TABLET(S) Q4H PRN nausea dose: 0.5 mg active Problems Diagnosis Status Date of Diagnosis Resolution Date At risk of breast cancer (finding) Active BRCA1 gene mutation positive (finding) Active Encounter for other plastic and reconstructive surgery following medical procedure or healed injury Active Malignant neoplasm of upper- outer quadrant of left female breast Active Body mass index (BMI) 30.0-30.9, adult Inactive Social History Date Name Value Sex Female
--- OUTSIDE RECORDS SUMMARY | 2024-12-26 07:06 | XMS_ITS | CCD ---
Author Name Interface, [id number] lity Address [address] [facility] [address] [place] [address] [facility] Address [address] [facility] [address] [address] [place] [address] Allergies and Adverse Reactions Medication/Group Name Reaction [...]
--- NOTE | 2024-12-26 07:13 | ED.ABDPAIN ---
HPI - Abdominal Pain General Date Seen: 12/26/24 Chief Complaint: Abdominal Pain Stated Complaint: upper right side ribcage wrapping around side Time Seen by Provider: 12/26/24 06:24 Source: patient Mode of arrival: ambulatory Limitations: no limitations History of Present Illness HPI narrative: 39-year-old female who comes in with several hours of right upper quadrant abdominal pain. She tried an antacid and it did not help. She has had several previous episodes but none lasting this long. No fevers or chills. No urinary symptoms. No diarrhea or constipation. She ate Micronesian food around 630 pm last night and nothing since. She did vomit once. Related Data Allergies Allergy/AdvReac Type Severity Reaction Status Date / Time No Known Drug Allergies Allergy Verified 12/26/24 06:08 Review of Systems Narrative ROS is also positive for breast cancer with a planned reconstructive procedure in a month. [facility] Medical History (Updated 12/26/24 @ 07:22 by Walker Stoner MD) YENNY (generalized anxiety disorder) ?F41.1 - Generalized anxiety disorder (ICD-10) BRCA1 positive ?Z15.01 - Genetic susceptibility to malignant neoplasm of breast (ICD-10) ?Z15.09 - Genetic susceptibility to other malignant neoplasm (ICD-10) Surgical History (Updated 12/26/24 @ 06:10 by Kalen Benjamin RN) S/P ovarian cystectomy ?Z98.890 - Other specified postprocedural states (ICD-10) ?Z87.42 - Personal history of other diseases of the female genital tract (ICD-10) History of mastectomy ?Z90.10 - Acquired absence of unspecified breast and nipple (ICD-10) H/O bilateral salpingo-oophorectomy ?Z90.79 - Acquired absence of other genital organ(s) (ICD-10) ?Z90.722 - Acquired absence of ovaries, bilateral (ICD-10) Social History Smoking Status: Never smoker How often do you have a drink containing alcohol: never AUDIT-C Alcohol total score: 0 Non-prescribed substance use: denies use Exam Narrative: Exam Narrative: Vitals noted. HEENT: Conjunctiva clear. Tympanic membranes are pearly white bilaterally. Posterior pharynx is clear without erythema or exudate. Neck is supple without adenopathy, thyromegaly. Lungs: Clear to auscultation in all serrato. No wheezes, rales, rhonchi. Heart: Regular rate and rhythm without murmur. Abdomen: Soft with RUQ pain. No guarding, rigidity, rebound. Bowel sounds are normal. No palpable masses. Extremities: No cyanosis or edema. Good distal pulses. Skin: No abnormalities noted of the exposed skin. Neurologic: Awake, alert, fully oriented. Neurologic exam is nonfocal. Const: Vital Signs, click to edit/add: Vital Signs - 24 hr 12/26/24 06:03 12/26/24 06:41 Temperature 98.0 F Pulse Rate [Pulse Oximeter] 84 Respiratory Rate 16 Blood Pressure [Ri ght Upper Arm] 148/94 H Pulse Oximetry 96 96 Oxygen Delivery Me thod Room Air Course Course ED Course: Pt is seen and examined. CBC and BMP are normal. LFTs show a normal Bili, AST - 139, ALT - 78. Lipase is normal. UA is normal. Reevaluation(s) Reevaluation #1: US confirms gallstones and some wall thickening. She is given Oxycodone 5 mg for pain. Case is discussed with Dr Dalton who is kindly willing to add her to the morning surgical schedule. D5LR is started and she is kept NPO. Vital Signs Vital signs: Initial Vital Signs Temperature 98.0 F 12/26/24 06:03 Temperature Source Temporal Artery Scan 12/26/24 06:03 Pulse Rate 84 12/26/24 06:03 Respiratory Rate 16 12/26/24 06:03 Blood Pressure 148/94 H 12/26/24 06:03 Blood Pressure Mean 112 H 12/26/24 06:03 Blood Pressure Position Sitting 12/26/24 06:03 Pulse Oximetry 96 12/26/24 06:03 Oxygen Delivery Method Room Air 12/26/24 06:03 Vital Signs Temperature 98.0 F 12/26/24 06:03 Pulse Rate 84 12/26/24 06:03 Respiratory Rate 16 12/26/24 06:03 Blood Pressure 148/94 H 12/26/24 06:03 Pulse Oximetry 96 12/26/24 06:03 Oxygen Delivery Method Room Air 12/26/24 06:03 Temperature 98.0 F 12/26/24 06:03 Pulse Rate 84 12/26/24 06:03 Respiratory Rate 16 12/26/24 06:03 Blood Pressure 148/94 H 12/26/24 06:03 Pulse Oximetry 96 12/26/24 06:41 Oxygen Delivery Method Room Air 12/26/24 06:03 Medications Administered Medications: Discontinued Medications Generic Name Dose Route Start Last Admin Trade Name Romario PRN Reason Stop Dose Admin Oxycodone/Acetaminophen 1 tab 12/26/24 06:36 12/26/24 06:39 Oxycodone/Apap 5-325 Tablet PO 12/26/24 06:37 1 tab ONCE ONE Administration MDM - Abdominal Pain Lab Data Labs: Lab Results 12/26/24 Range/Units 06:10 WBC 8.88 (4.50-11.00) K/uL RBC 4.20 (4.00-5.20) m/uL Hgb 13.1 (12.0-16.0) gm/dL Hct 38.8 (33.0-51.0) % MCV 92 (80-100) fL MCH 31 (26-34) pg MCHC 34 (32-36) gm/dL RDW Coeff of Suleiman 12.3 (11.5-15.5) % Plt Count 224 (140-440) K/uL Neut % (Auto) 79.3 H (42.0-72.0) % Lymph % (Auto) 12.3 L (20-44) % Dukes % (Auto) 6.8 (0.0-11.0) % Eos % (Auto) 1.0 (0.0-7.0) % Baso % (Auto) 0.5 (0.0-3.0) % Neut # (Auto) 7.00 (1.7-7.0) K/uL Lymph # (Auto) 1.10 (0.90-2.90) K/uL Dukes # (Auto) 0.60 (0.00-0.90) K/UL Eos # (Auto) 0.09 (0.00-0.50) K/uL Baso # (Auto) 0.04 (0.00-0.30) K/uL Abs Immat Gran (auto) 0.01 (0.00-0.30) K/uL Imm/Tot Granulo (auto) 0.1 % Sodium 137 (135-149) mmol/L Potassium 3.7 (3.6-5.1) mmol/L Chloride 106 (96-114) mmol/L Carbon Dioxide 24 (20-32) mmol/L Anion Gap 7 (7-15) mEq/L BUN 14 (5-24) mg/dL Creatinine 0.7 (0.5-1.5) mg/dL Estimated Creat Clear 84.49 Estimated GFR 112 ml/min Glucose 121 H (60-115) mg/dL Calcium 9.2 (8.4-10.6) mg/dL Total Bilirubin 0.7 (0.1-1.5) mg/dL AST 139 H (12-35) U/L ALT 78 H (4-35) U/L Alkaline Phosphatase 50 (40-150) U/L Total Protein 7.2 (6.0-8.3) g/dL Albumin 4.3 (3.3-5.0) g/dL Lipase 196 (23-300) U/L Urine Color Yellow (Yellow) Urine Appearance Slightly Cloudy A (Clear) Urine pH 7.0 (5.0-8.5) Ur Specific [place] 1.020 (1.000-1.030) Urine Protein 1+ A (Negative) Urine Glucose (UA) Negative (Negative) Urine Ketones Negative (Negative) Urine Blood Trace-intact A (Negative) Urine Nitrite Negative (Negative) Urine Bilirubin Negative (Negative) Urine Urobilinogen 1.0 (0.2-1.0) Ur Leukocyte Esterase Trace A (Negative) Urine RBC 0-2 (0-2) Urine WBC 5-10 A (0-5) Ur Squamous Epith Cells Moderate A (None-Few) Urine Bacteria Moderate A (None) Discharge Plan Discharge Clinical Impression: Cholelithiasis, Cholecystitis Patient Disposition: XFER to OR Condition: Improved Follow Up/Referrals: Suzy Walker DO [Primary Care Provider, [facility]]
[2024-12-26] MEDS: ONDANSETRON 2 MG/ML inj 4 MG IVP (07:43)
[2024-12-26] MEDS: 5 % DEXTROSE IN LAC RINGER'S 1,000 ML 125 ML IV (07:44)
[2024-12-26] MEDS: SODIUM CHLORIDE 0.9 % (FLUSH) 10 ML SYRINGE IVF (08:24)
[2024-12-26] MEDS: LACTATED RINGERS 1000 ML 1,000 ML 100 ML IV ×2 (08:24→13:15)
[2024-12-26] MEDS: SCOPOLAMINE 1 MG/3 DAY PATCH 1 PATCH TRANSDERMA (09:00)
--- NOTE | 2024-12-26 09:11 | P.GSHP_ITS ---
History of Present Illness History of Present Illness Date Seen: 12/26/24 Chief complaint: upper right side ribcage rapping around side Narrative: Airana Trotter is a 39 year old female who presented to the emergency department with several hours of right upper quadrant abdominal pain. The pain woke her up from sleep at 3:00 a.m.. It is focused just under the rib on the right side. She last ate some Vietnamese food around 6:30 p.m. last night. She has had several episodes similar to this in the last few months, but this 1 felt more severe and persistent bringing her into the emergency department. No fevers. She denies any diarrhea or constipation. She did have some associated nausea with 1 episode of emesis. Her abdominal surgical history is positive for bilateral salpingo-oophorectomy. Patient does have a history of breast cancer and is status post bilateral mastectomy. She has plans for reconstruction via a muscle flap in the next month. Quality: Safe Use of Opioids Is the patient undergoing opioid medication assisted treatment that includes methadone, buprenorphine, and/or naltrexone: No Review of Systems Status of ROS: Reports: 10 or more systems reviewed and unremarkable except as noted in History and below [facility] Medical History (Updated 12/26/24 @ 07:22 by Walker Stoner MD) YENNY (generalized anxiety disorder) ?F41.1 - Generalized anxiety disorder (ICD-10) BRCA1 positive ?Z15.01 - Genetic susceptibility to malignant neoplasm of breast (ICD-10) ?Z15.09 - Genetic susceptibility to other malignant neoplasm (ICD-10) Surgical History (Updated 12/26/24 @ 06:10 by Kalen Benjamin RN) S/P ovarian cystectomy ?Z98.890 - Other specified postprocedural states (ICD-10) ?Z87.42 - Personal history of other diseases of the female genital tract (ICD-10) History of mastectomy ?Z90.10 - Acquired absence of unspecified breast and nipple (ICD-10) H/O bilateral salpingo-oophorectomy ?Z90.79 - Acquired absence of other genital organ(s) (ICD-10) ?Z90.722 - Acquired absence of ovaries, bilateral (ICD-10) Social History Smoking Status: Never smoker Do you use any of these nicotine containing products: None Second hand tobacco smoke exposure: No How often do you have a drink containing alcohol: never How often do you have six or more drinks on one occasion: Never AUDIT-C Alcohol total score: 0 Non-prescribed substance use: denies use Caffeine: No service: No Meds Home Medications and Allergies Allergies Allergy/AdvReac Type Severity Reaction Status Date / Time No Known Drug Allergies Allergy Verified 12/26/24 06:08 Exam Narrative: Exam Narrative: General: Alert and oriented, no acute distress Respiratory: Equal breath rise bilaterally, maintained on room air CV: Well perfused Abdomen: Soft, some tenderness to palpation right upper quadrant, no guarding or rebound. Const: Vital Signs, click to edit/add: Vital Signs - 24 hr 12/26/24 06:03 12/26/24 06:41 12/26/24 07:26 Temperature 98.0 F Pulse Rate [Pulse Oximeter] 84 82 Respiratory Rate 16 16 Blood Pressure [Ri ght Upper Arm] 148/94 H 144/89 H Pulse Oximetry 96 96 96 Oxygen Delivery Me thod Room Air Room Air Results Results Labs: No leukocytosis. LFTs significant for mild elevation AST/ALT, normal bilirubin and alkaline phosphatase. Abdominal ultrasound report/results: report reviewed and image reviewed Progress Note:A&P Assessment and plan (1) Cholecystitis: Status: Acute Assessment and Plan: Patient presents with greater than 6 hours right upper quadrant abdominal pain. Clinical symptoms and workup are consistent with acute cholecystitis. An abdominal ultrasound demonstrates distension of the gallbladder with multiple stones and a stone lodged in the gallbladder neck. Her LFTs are within normal limits, no concern for choledocholithiasis. I had a detailed conversation with the patient regarding the diagnosis of acute cholecystitis. We discussed the treatment options including observation with diet modification and laparoscopic cholecystectomy. We discussed the risks of surgery (including but not limited to) the risks of bleeding, infection, injury to other structures in the abdomen including bile duct injury, bile leak and conversion to an open operation. We discussed the possibility that the patient's pain not improve with surgery. We discussed the possibility of permanent post-operative diarrhea that may require medical management. Additionally, the conceivably of complications requiring additional surgery or further hospitalization were also discussed including the risks of MT, respiratory failure, stroke and blood clots. The patient voiced an understanding of our conversation, had the opportunity to ask questions, agreed to accept the risks of surgery and asked that we proceed with surgery. Plan OR for laparoscopic cholecystectomy
[2024-12-26] MEDS: BUPIVACAINE 0.5% 30 ML INJECTION (09:55)
--- NOTE | 2024-12-26 10:24 | P.ANES_ITS ---
Anesthesia Charges Start Date/Time Anesthesia Start Date: 12/26/24 Anesthesia Start Time: 09:32 Stop Date/Time Anesthesia Stop Date: 12/26/24 Anesthesia Stop Time: 11:12 Coding CPT Codes CPT Codes: ANESTH SURG UPPER ABDOMEN - 43797 ([id number]) P2 - PATIENT W/MILD SYST DISEASE, QK - SEISMIC PROSPECTING OBSERVER HELPER 2-4 CNCRNT ANES PROC, QX - DIRECTOR STYLE SVC W/ MD MED DIRECTION
--- NOTE | 2024-12-26 10:24 | W.ANESCHARGE ---
Anesthesia Charges Start Date/Time Anesthesia Start Date: 12/26/24 Anesthesia Start Time: 09:32 Stop Date/Time Anesthesia Stop Date: 12/26/24 Anesthesia Stop Time: 11:12 Coding CPT Codes CPT Codes: ANESTH SURG UPPER ABDOMEN - 26475 ([id number]) P2 - PATIENT W/MILD SYST DISEASE, QK - POINTER HELPER 2-4 CNCRNT ANES PROC, QX - ONYX CHIP TERRAZZO WORKER SVC W/ MD MED DIRECTION
--- NOTE | 2024-12-26 10:55 | PM.GSPRC ---
Operative Note Date of procedure: 12/26/24 Pre-op diagnosis: Acute cholecystitis Post-op diagnosis: Same, hydrops Type of Procedure: Laparoscopic cholecystectomy Indications: Patient is a 39-year-old female with clinical workup and symptoms consistent with acute cholecystitis. Risks and benefits of operative intervention were discussed at length with the patient. Risks included but was not limited to: Bleeding, infection, risk of damage to surrounding structures, possible need for additional procedures, possible need to convert to an open operation and postoperative complications such as pneumonia, pulmonary emboli or IN. All questions and concerns were addressed with the patient agreeing to proceed. Procedure Description: After discussing the risks and benefits of the procedure, the patient signed informed consent.? The operative site was marked and the patient was brought to the operating room and placed on the operating table in supine position.? Care was taken to pad the patient's pressure points.?? The patient was then intubated by anesthesia.?? The operative site was then prepped and draped in the usual sterile fashion.? A time-out was then performed. Entrance to the abdomen was gained via a 5 mm Visiport in the left upper quadrant. The abdomen was insufflated and briefly surveyed for signs of injury. There was none. 11 mm umbilical port was placed as well as 2 working ports along the right costal margin. Patient was then placed in reverse Trendelenburg position with the right side up. The gallbladder fundus was distended. A laparoscopic needle was used to decompress clear, bile tinged fluid consistent with developing hydrops. 60 mL in total was removed allowing for the fundus to be grasped and retracted cephalad. A small amount of dissection was needed to free omental adhesions from the gallbladder. The infundibulum was grasped. A combination of hook cautery and blunt dissection was used to carefully dissect out the cystic duct and artery until they could clearly be seen entering the gallbladder without any intervening structures. The gallbladder was dissected off the cystic plate to achieve the critical view. Once this was achieved the cystic duct and artery were each clipped with 2 clips proximally and 1 clip distally and transected with the scissors. The gallbladder was then taken off of the liver bed. And removed from the abdomen using an Endo-Catch bag. The gallbladder bed was surveyed for hemostasis, which was excellent. The ports were then removed under direct vision. The umbilical port fascia was closed with 0 Vicryl. The skin was closed with absorbable subcuticular suture. Instrument sponge and needle counts were correct at the end of the case. The patient was then woken and transferred to the PACU in stable condition. Findings: Hydrops of the gallbladder. Anesthesia: GETA Surgeon: Ness Dalton MD Estimated blood loss (mL): 10 Specimen: Gallbladder Condition: stable Disposition: PACU
--- NOTE | 2024-12-26 11:09 | P.ANES_ITS ---
Anesthesia Charges Start Date/Time Anesthesia Start Date: 12/26/24 Anesthesia Start Time: 09:32 Stop Date/Time Anesthesia Stop Date: 12/26/24 Anesthesia Stop Time: 11:12 Coding CPT Codes CPT Codes: ANESTH SURG UPPER ABDOMEN - 78876 ([id number]) P2 - PATIENT W/MILD SYST DISEASE, QK - BOOTH CLEANER 2-4 CNCRNT ANES PROC, QX - CAR STOWER SVC W/ MD MED DIRECTION
--- NOTE | 2024-12-26 11:09 | W.ANESCHARGE ---
Anesthesia Charges Start Date/Time Anesthesia Start Date: 12/26/24 Anesthesia Start Time: 09:32 Stop Date/Time Anesthesia Stop Date: 12/26/24 Anesthesia Stop Time: 11:12 Coding CPT Codes CPT Codes: ANESTH SURG UPPER ABDOMEN - 58634 ([id number]) P2 - PATIENT W/MILD SYST DISEASE, QK - WOOD ROOM HAND 2-4 CNCRNT ANES PROC, QX - CHAR PULLER SVC W/ MD MED DIRECTION
[2024-12-26] MEDS: PROCHLORPERAZINE 5 MG/ML VIAL IVP (13:03)
--- NOTE | 2024-12-26 13:20 | SUR.PHASEII ---
1300: Patient had emesis upon standing while dressing. Declined cool washcloth. Compazine administered via IV. Patient states she's feeling better and ready for discharge.
== END 2024-12-26 13:20 | disposition home or self-care (01) ==
LOC: ED 07:43 → MS OUT 07:53
PROVIDERS: Emergency Provider Family Medicine; PCP Family Medicine; Visit Provider Surgery
PROC: 0FT44ZZ Resection of Gallbladder, Percutaneous Endoscopic Approach (ICD-10-PCS; CPT 47562; principal; 2024-12-26 09:30)
DX: K80.00 Calculus of gallbladder with acute cholecystitis without obstruction (principal); K82.1 Hydrops of gallbladder; R10.11 Right upper quadrant pain
CPT/HCPCS: 47562; 00790; 36415; 76705; 80053; 81001; 83690; 85025; 87086; 88304; 94761; 99283; 99284; 99285; A9270; J0330; J0665; J0780; J1100; J1171; J2250; J2371; J2405; J2704; J2710; J3010; J3490; J7120